=== PATIENT | male | born 1995 | race Caucasian/White ===

== ENCOUNTER 2018-02-16 10:50 | Inpatient (IN) | payer OTHER ==
[~2018-02-16] VITALS: Ht 180.3 cm; Wt 104.8 kg
--- NOTE | 2018-02-16 11:15 | NUR ---
NAUSEA, VOMITING, DIARRHEA x 3 DAYS. BACK PAIN, WEAKNESS, DIZZINESS. NAD NOTED, VSS, RESP EVEN AND UNLABORED. PT WAS PUT ON MONITOR, WAITING FOR MD DOWD.
[2018-02-16] MEDS ORDERED: ONDANSETRON HCL/PF 4 MG/2 ML VIAL ONE (11:28)
[2018-02-16] MEDS ORDERED: MAG HYDROX/AL HYDROX/SIMETH 30 ML UDC ONE (11:28)
[2018-02-16] MEDS ORDERED: IV NS 0.9% 1,000 ML BAG IV ONE (11:30)
[2018-02-16] MEDS ORDERED: ONDANSETRON HCL/PF 4 MG/2 ML VIAL IVP ONE (11:30)
[2018-02-16] MEDS ORDERED: MAG HYDROX/AL HYDROX/SIMETH 30 ML UDC PO ONE (11:30)
[2018-02-16 11:41] LABS: BASOPHILS % (AUTO) 0.7 % (0.0-2.0); EOSINOPHILS % (AUTO) 0.1 % (0.0-6.0); HEMATOCRIT 47 % (39-51); HEMOGLOBIN 16.1 g/dL (13.5-17.5); LYMPHOCYTES # (AUTO) 1.2 /CMM (0.8-4.8); LYMPHOCYTES % (AUTO) 19.3 % (20.0-44.0); MEAN CORPUSCULAR HGB CONC 34 g/dl (31.0-36.0); MEAN CORPUSCULAR VOLUME 87 fL (80-96); MONOCYTES # (AUTO) 0.5 /CMM (0.1-1.30); MONOCYTES % (AUTO) 7.5 % (2.0-12.0); NEUTROPHILS # (AUTO) 4.5 /CMM (1.8-8.9); NEUTROPHILS % (AUTO) 72.4 % (43.0-81.0); PLATELET COUNT (AUTO) 104 /CMM (150-450); RDW COEFFICIENT OF VARIATION 11.8 (11.5-15.0); RED BLOOD CELL COUNT(AUTO) 5.43 MIL/uL (4.5-6.0); WHITE BLOOD COUNT (AUTO) 6.2 K/uL (4.3-11.0)
[2018-02-16 11:57] LABS: ALBUMIN 3.2 g/dL (3.4-5.0); BILIRUBIN,DIRECT 0.3 mg/dL (0.0-0.2); BILIRUBIN,TOTAL 1.4 mg/dL (0.2-1.0); CALCIUM, SERUM 8.6 mg/dL (8.5-10.1); CREATININE 1.1 mg/dL (0.6-1.3); TOTAL PROTEIN, SERUM 7.3 g/dL (6.4-8.2)
[2018-02-16 11:59] LABS: POTASSIUM 2.8 mmol/L (3.5-5.1)
[2018-02-16] MEDS ORDERED: POTASSIUM CHLORIDE 20 MEQ TAB.PRT.SR PO ONE ×3 (12:30→14:00)
[2018-02-16] MEDS ORDERED: POTASSIUM CHLORIDE 10 MEQ/50 ML PREMIXED IVPB FOR PERIPHERAL LINE IV ONE (12:30)
[2018-02-16] MEDS ORDERED: IOHEXOL-300 100 ML VIAL IV ONE (13:33)
--- NOTE | 2018-02-16 13:40 | NUR ---
PT TO CTSCAN
[2018-02-16 14:10] LABS: APPEARANCE,URINE SL CLOUDY (CLEAR); BILIRUBIN,URINE 1+ (NEGATIVE); BLOOD, URINE 3+ Ery/uL (NEGATIVE); COLOR,URINE RED (YELLOW); KETONES,URINE TRACE (NEGATIVE); LEUKOCYTE ESTERASE ,URINE NEGATIVE (NEGATIVE); NITRITE, URINE NEGATIVE (NEGATIVE); PROTEIN,URINE 3+ mg/dl (NEGATIVE); UGLUCOSE NEGATIVE (NEGATIVE); UROBILINOGEN,URINE 0.2 EU/dL (0.2)
[2018-02-16 14:24] LABS: BACTERIA,URINE Many /HPF (None Seen); SQUAMOUS EPITHELIAL CELL,UR Few /HPF (None Seen)
[2018-02-16 14:25] LABS: WBC,URINE 0-2 /HPF (0-3)
--- NOTE | 2018-02-16 15:18 | NUR ---
CALLED NURSING SUP. FOR MS BED
--- NOTE | 2018-02-16 15:20 | NUR ---
[facility] PAGED, [place] [facility]
[2018-02-16] MEDS ORDERED: TRIMETHOPRIM IV ONE (15:30)
[2018-02-16] MEDS ORDERED: D5W IV ONE (15:30)
[2018-02-16] MEDS ORDERED: SULFAMETHOXAZOLE IV ONE (15:30)
[2018-02-16] MEDS ORDERED: LEVOFLOXACIN 750 MG /D5W 150ML 150 ML IV ONE (15:30)
[2018-02-16] MEDS ORDERED: SULFAMETH/TRIMETH 800/160 MG 1 UDTAB TABLET PO ONE ×2 (15:51→16:00)
--- NOTE | 2018-02-16 16:16 | NUR ---
MS 316-2
[2018-02-16] MEDS ORDERED: MAGNESIUM HYDROXIDE 30 ML UDC PO PRN (16:30)
[2018-02-16] MEDS ORDERED: MAG HYDROX/AL HYDROX/SIMETH 30 ML UDC PO PRN (16:30)
[2018-02-16] MEDS ORDERED: Z GUARD REMEDY 2 OZ OINT TP PRN (16:30)
[2018-02-16] MEDS ORDERED: ONDANSETRON HCL/PF 4 MG/2 ML VIAL IVP PRN (16:30)
[2018-02-16 16:53] LABS: INR 0.98 (0.87-1.13)
[2018-02-16 17:00] VITALS: BP 136/71
--- NOTE | 2018-02-16 17:00 | NUR ---
MS ADMIT FROM ER AFTER REPORT RECEIVED FROM NOV. PATIENT ORIENTED TO PRIMARY RN, UNIT, ROOM, BED, AND UNIT POLICIES REGARDING PATIENT CARE AND VISITING HOURS. PATIENT WEIGHED BY BED SCALE AND ENCOURAGED TO CALL IF THEY NEED SOMETHING. ALL QUESTIONS AND CONCERNS ADDRESSED. PATIENT VERBALIZED UNDERSTANDING.
[2018-02-16 17:51] LABS: CREATINE KINASE MB 2.6 ng/mL (0-3.6)
[2018-02-16] MEDS: PANTOPRAZOLE 40 MG VIAL IV SCH (18:14)
--- NOTE | 2018-02-16 18:27 | NUR ---
CHANGE OF SHIFT REPORT PT RESTING COMFORTABLY IN BED WITH EYES CLOSED. NO S/S OR C/O PAIN OR DISTRESS NOTED. SIDE RAILS UP X2, CALL LIGHT LEFT WITHIN REACH. PT KEPT CLEAN, DRY, AND COMFORTABLE. NO SIGNIFICANT CHANGES SINCE ADMISSION. WILL GIVE REPORT TO JENNIFER DUENAS.
[2018-02-16] MEDS: IV D5/0.45 NACL 1,000 ML IV PRN (18:56)
--- NOTE | 2018-02-16 19:15 | NUR ---
RN OPENING NOTES PT AWAKE AND ALERT SITTING ON SIDE OF BED. FAMILY AT BEDSIDE. NO COMPLAINTS OF SOB AT THIS TIME. PT COMPLAINS OF CHRONIC ABD PAIN. PT HAS RIGHT HAND #20, AND LEFT HAND #20 INTACT AND RUNNING D5 1/2NS @150 ML/HR. PT TOLERATING FLUID WELL. PER DAY SHIFT NURSE 1700 ZITHROMAX AND 1800 ROCEPHIN WERE DELAYED. WILL ADMINISTER SOON POSSIBLE. SAFETY PRECAUTIONS IN PLACE. BED IN LOWEST LOCKED POSITION, X2 SIDE RAILS UP AND CALL LIGHT WITHIN REACH. WILL CONTINUE TO MONITOR.
[2018-02-16] MEDS: AZITHROMYCIN 500 MG in IV D5W 250 ML IV SCH (19:41)
[2018-02-16] MEDS: KETOROLAC TROMETHAMINE INJ 30 MG/ML VIAL IM/IV PRN (19:54)
--- NOTE | 2018-02-16 19:54 | NUR ---
RN NOTES PT COMPLAINING OF ABD PAIN. WILL ADMINISTER PRN TORADOL 15MG AND CONTINUE TO MONITOR.
[2018-02-16 20:00] VITALS: BP 137/73
[2018-02-16] MEDS: CEFTRIAXONE 1 G in IV D5W 50 ML IV SCH (21:37)
[2018-02-16] MEDS: ZOLPIDEM TARTRATE 5 MG TABLET PO PRN (23:50)
--- NOTE | 2018-02-16 23:50 | NUR ---
RN NOTES PT REQUESTED SUSYN ADI FOR SLEEP AID. WILL CONTINUE TO MONITOR.
[2018-02-17] MEDS: IV D5/0.45 NACL 1,000 ML IV PRN (05:12)
[2018-02-17 06:29] LABS: BASOPHILS % (AUTO) 0.2 % (0.0-2.0); HEMATOCRIT 39 % (39-51); HEMOGLOBIN 13.4 g/dL (13.5-17.5); LYMPHOCYTES # (AUTO) 1.9 /CMM (0.8-4.8); LYMPHOCYTES % (AUTO) 32.8 % (20.0-44.0); MEAN CORPUSCULAR HGB CONC 34 g/dl (31.0-36.0); MEAN CORPUSCULAR VOLUME 88 fL (80-96); MONOCYTES % (AUTO) 16.5 % (2.0-12.0); NEUTROPHILS # (AUTO) 2.9 /CMM (1.8-8.9); NEUTROPHILS % (AUTO) 50.5 % (43.0-81.0); PLATELET COUNT (AUTO) 114 /CMM (150-450); RDW COEFFICIENT OF VARIATION 12.7 (11.5-15.0); RED BLOOD CELL COUNT(AUTO) 4.48 MIL/uL (4.5-6.0); WHITE BLOOD COUNT (AUTO) 5.8 K/uL (4.3-11.0)
--- NOTE | 2018-02-17 06:45 | NUR ---
RN CLOSING NOTES PT AWAKE AND RESTING IN BED. NO COMPLAINTS OF PAIN, DISTRESS OR PAIN. PT HAS RIGHT HAND #20, AND LEFT HAND #20 INTACT AND RUNNING D5 1/2NS @150 ML/HR. PT TOLERATING FLUID WELL. ALL NEEDS MET. SAFETY PRECAUTIONS IN PLACE. BED IN LOWEST LOCKED POSITION, X2 SIDE RAILS UP AND CALL LIGHT WITHIN REACH. WILL ENDORSE TO DAY SHIFT NURSE FOR CONTINUITY OF CARE.
[2018-02-17 07:04] LABS: ALBUMIN 2.6 g/dL (3.4-5.0); CALCIUM, SERUM 7.9 mg/dL (8.5-10.1); MAGNESIUM 1.8 mg/dL (1.8-2.4); PHOSPHORUS 2.3 mg/dL (2.5-4.9); POTASSIUM 3.1 mmol/L (3.5-5.1); TOTAL PROTEIN, SERUM 5.9 g/dL (6.4-8.2)
--- NOTE | 2018-02-17 07:56 | NUR ---
MS RN OPENING NOTES RECEIVED PATIENT IN STABLE CONDITION. IN NO APPARENT DISTRESS. BEDSIDE RAILS ARE UPX2. BED IS LOCKED AND LOWERED. CALL LIGHT IS WITHIN REACH. IV LINE IS INTACT AND PATENT. WILL CONTINUE TO MONITOR.
[2018-02-17] MEDS: PANTOPRAZOLE 40 MG VIAL IV SCH (07:58)
[2018-02-17] MEDS: KETOROLAC TROMETHAMINE INJ 30 MG/ML VIAL IM/IV PRN ×2 (08:03→14:47)
[2018-02-17 08:20] VITALS: BP 120/43
[2018-02-17 09:36] LABS: BAND % (MANUAL) 5 % (0.0-5.0); EOSINOPHILS % (MANUAL) 1 % (0-4); LYMPHOCYTES % (MANUAL) 37 % (16-48); MONOCYTES % (MANUAL) 16 % (0-11.0); NEUTROPHILS % (MANUAL) 41 (42-76)
[2018-02-17] MEDS: POTASSIUM CHLORIDE 20 MEQ TAB.PRT.SR PO SCH ×2 (10:38→10:39)
[2018-02-17] MEDS: POTASSIUM PHOSPHATE MM 7.5 MMOL in IV D5W 100 ML IV SCH ×2 (16:24→19:51)
[2018-02-17 16:25] VITALS: BP 131/68
[2018-02-17] MEDS: AZITHROMYCIN 500 MG in IV D5W 250 ML IV SCH (16:47)
[2018-02-17] MEDS: CEFTRIAXONE 1 G in IV D5W 50 ML IV SCH (18:02)
--- NOTE | 2018-02-17 18:06 | NUR ---
POTASSIUM PHOSPHATE BAG STARTED AT 1624. RUNNING FOR 3 HOURS. WILL END AT [phone]. WILL ENDORSE TO RADIUS GRINDER. A 2ND BAG OF POTASSIUM PHOSPHATE TO BE GIVEN AFTER THE FIRST BAG IS FINISHED. PATIENT REMOVED 2ND IV LINE. A NEW IV WAS STARTED ON RIGHT HAND 22G.
--- NOTE | 2018-02-17 18:34 | NUR ---
MS RN CLOSING NOTES PATIENT IS ALERT AND ORIENTED X4. ALL NEEDS WERE MET. BEDSIDE RAILS ARE UPX2. BED IS LOCKED AND LOWERED. CALL LIGHT IS WITHIN REACH. VITAL SIGNS ARE WNL. WILL ENDORSE CARE TO SHEET METAL PATTERN CUTTER NURSE FOR CHASITY.
--- NOTE | 2018-02-17 19:56 | NUR ---
MS/RN OPENING NOTES' PATIENT IN BED, ALERT, OREINTED X3, ABLE TO VERBALIZE NEEDS, ABLE TO WALK TO BATHROOM, INSTRUCTED FOR SAFETY, FAMILY AT BEDSIDE, INFORMED ABOUT IV POTASSIUM TO ADMINISTER , WILL ADMINISTER AND MONTITOR ANY ADVERSE REACTION OR CHANGES. RESPIRATIONS EVEN AND UNLABORED. WILL CONTINUE TO MONITOR.
[2018-02-17 20:00] VITALS: BP_SYST 116; BP_SYST 133; BP_SYST 135; BP_DIAS 73; BP_DIAS 78
[2018-02-17] MEDS: ZOLPIDEM TARTRATE 5 MG TABLET PO PRN (22:12)
--- NOTE | 2018-02-17 22:15 | NUR ---
MS/RN NOTES PATIENT REQUESTED GOR SLEEP MEDICATION, AMBIEN 5MG PO GIVEN, WILL MONITOR EFFECTIVENESS.
[2018-02-18] MEDS: IV D5/0.45 NACL 1,000 ML IV PRN (00:39)
[2018-02-18] MEDS: KETOROLAC TROMETHAMINE INJ 30 MG/ML VIAL IM/IV PRN (05:36)
--- NOTE | 2018-02-18 05:47 | NUR ---
MS/RN NOTES PATIENT REPORTED SEVERE PAIN IN LEFT LEG, TORADOL 0.5ML GIVEN IVP , FOR PAIN AND MONITORING FOR PAIN RELIEF, PATIENT REPORTED DRINKING FLUIDS EVERY HOUR AND NOT TO HAVE IV FLUIDS RUNNING AT THIS TIME.
[2018-02-18 07:20] LABS: CALCIUM, SERUM 8.1 mg/dL (8.5-10.1); CREATININE 0.9 mg/dL (0.6-1.3); PHOSPHORUS 2.6 mg/dL (2.5-4.9); POTASSIUM 3.6 mmol/L (3.5-5.1)
[2018-02-18 08:00] VITALS: BP 130/71
--- NOTE | 2018-02-18 08:00 | NUR ---
m/s director occupational: initial assessment received pt in bed sounds asleep. no s/s of discomfort. no apparent distress noted. will continue to monitor.
--- NOTE | 2018-02-18 08:45 | NUR ---
m/s deployment engineer: md visit pt soundly asleep. dr. betts at bedside and will come back later, pt for d'c home today as stated.
[2018-02-18 08:58] LABS: CREATINE KINASE MB 1.5 ng/mL (0-3.6)
[2018-02-18] MEDS: PANTOPRAZOLE 40 MG VIAL IV SCH (09:26)
--- NOTE | 2018-02-18 10:30 | NUR ---
m/s spectral scientist: notes pt wants to go home by 1130. dr. betts notified and made aware. md will come in shortly, pt made aware.
--- NOTE | 2018-02-18 10:49 | NUR ---
m/s hand salter: notes ordered received to discharge pt with Discharge instructions Followup with primary care physician in one week to repeat lipase level, Continue home medications and prescription provided. pt aware. awaiting for prescriptions.
--- NOTE | 2018-02-18 11:00 | NUR ---
m/s preflight mechanic: notes dr. betts at bedside and discharged instructions given with prescriptions by md and primary nurse. educated pt to drink plenty of fluids and follow up with his primary medical doctor in one week with repeat lipase level. pt doesn't have a doctor yet, and dr. betts wants him to look for one and follow up in one week, stated, "i will do that." h/l removed with tip intact with no bleeding, no redness, and no swelling noted.
--- NOTE | 2018-02-18 11:10 | NUR ---
m/s catering server: discharged pt wants to wait outside for his grandma, pt refused to have his wristband remove. discharged home in stable condition at this time.
== END 2018-02-18 11:06 | disposition home or self-care (01) | DRG 282 ==
LOC: ER 10:56 → MED 16:43
PROVIDERS: ADMIT Internal Medicine; ATTEND Internal Medicine
DX: K85.90 Acute pancreatitis without necrosis or infection, unspecified (principal); J15.9 Unspecified bacterial pneumonia; M62.82 Rhabdomyolysis; D69.6 Thrombocytopenia, unspecified; M51.26 Other intervertebral disc displacement, lumbar region; G89.29 Other chronic pain
CPT/HCPCS: 36415; 71045-TC; 80048-TC; 80053-TC; 80076-TC; 80305; 81000-TC; 82550-TC; 82553-TC; 83690-TC; 83735-TC; 84100-TC; 85025-TC; 85610-TC; 85730-TC; 87040-TC; 87081-TC; 87086-TC; A4606; C9113; J0456; J0696; J1885; J1956; J2405; J3480; J3490; J7030; J7040; J7060; Q9967; Z7610

== ENCOUNTER 2019-03-20 03:15 | Emergency (ER) | payer OTHER ==
[~2019-03-20] VITALS: Ht 180.3 cm; Wt 104.3 kg
--- NOTE | 2019-03-20 03:36 | NUR ---
PT BIBSELF C/O GENERALIZED ABDOMINAL PAIN X1 DAY. +VOMITTING, +NAUSEA, -DYSURIA, -HEMATURIA. PT AOX4. NAD NOTED. PT ON MONITOR IN BED 9. WILL CONTINUE TO MONITOR.
--- NOTE | 2019-03-20 03:43 | NUR ---
PHLEB AT BEDSIDE FOR LAB DRAW
[2019-03-20 03:57] LABS: BASOPHILS # (AUTO) 0.2 /CMM (0.0-0.2); BASOPHILS % (AUTO) 1.4 % (0.0-2.0); EOSINOPHILS % (AUTO) 2.2 % (0.0-6.0); HEMATOCRIT 52 % (39-51); HEMOGLOBIN 17.9 g/dL (13.5-17.5); LYMPHOCYTES # (AUTO) 5.2 /CMM (0.8-4.8); LYMPHOCYTES % (AUTO) 35.2 % (20.0-44.0); MEAN CORPUSCULAR HGB CONC 35 g/dl (31.0-36.0); MEAN CORPUSCULAR VOLUME 90 fL (80-96); NEUTROPHILS % (AUTO) 54.2 % (43.0-81.0); PLATELET COUNT (AUTO) 286 /CMM (150-450); RED BLOOD CELL COUNT(AUTO) 5.74 MIL/uL (4.5-6.0); WHITE BLOOD COUNT (AUTO) 14.8 K/uL (4.3-11.0)
[2019-03-20 04:07] LABS: CALCIUM, SERUM 8.4 mg/dL (8.5-10.1); CREATININE 1.3 mg/dL (0.6-1.3); POTASSIUM 3.8 mmol/L (3.5-5.1)
[2019-03-20 04:11] LABS: ALBUMIN 3.7 g/dL (3.4-5.0); BILIRUBIN,DIRECT 0.1 mg/dL (0.0-0.2); BILIRUBIN,TOTAL 0.7 mg/dL (0.2-1.0); TOTAL PROTEIN, SERUM 7.3 g/dL (6.4-8.2)
--- NOTE | 2019-03-20 04:18 | NUR ---
RADIOLOGY AT BEDSIDE FOR XRAY
[2019-03-20 05:31] VITALS: BP 112/70
== END 2019-03-20 05:34 | disposition home or self-care (01) ==
LOC: ER 03:15
DX: R10.84 Generalized abdominal pain (principal); F17.200 Nicotine dependence, unspecified, uncomplicated
CPT/HCPCS: 36415; 71045-TC; 80048-TC; 80076-TC; 83690-TC; 85025-TC; G0480

== ENCOUNTER 2020-06-14 16:34 | Emergency (ER) | payer OTHER ==
[~2020-06-14] VITALS: Ht 180.3 cm; Wt 111.1 kg
[2020-06-14 17:21] VITALS: BP 116/89
--- NOTE | 2020-06-14 18:00 | NUR ---
Pt eloped from ER
== END 2020-06-14 19:32 | disposition left against medical advice (07) ==
LOC: ER 16:39
DX: Z53.21 Procedure and treatment not carried out due to patient leaving prior to being seen by health care provider (principal); R10.9 Unspecified abdominal pain; R11.2 Nausea with vomiting, unspecified